=== PATIENT | female | born 1945 | race Two or more races ===

== ENCOUNTER 2022-06-22 11:51 | Outpatient (CLI) | payer OTHER | END 2022-06-22 12:00 | disposition home or self-care (01) | LOC: MRI 11:51 | DX: M23.222 Derangement of posterior horn of medial meniscus due to old tear or injury, left knee (principal); M23.221 Derangement of posterior horn of medial meniscus due to old tear or injury, right knee | CPT/HCPCS: 73721 ==

== ENCOUNTER 2022-08-05 15:12 | Outpatient (CLI) | payer OTHER | END 2022-08-05 15:17 | disposition home or self-care (01) | LOC: RAD 15:12 | PROVIDERS: ATTEND Orthopaedic Surgery Sports Medicine | DX: M17.0 Bilateral primary osteoarthritis of knee (principal) ==

== ENCOUNTER 2023-04-12 12:47 | Emergency (ER) | payer OTHER ==
[~2023-04-12] VITALS: Ht 144.8 cm; Wt 45.4 kg
[2023-04-12] MEDS ORDERED: AMLODIPINE-OLM1 EAC2 PO (13:22)
[2023-04-12] MEDS ORDERED: METROPOLOL (13:23)
[2023-04-12] MEDS ORDERED: GLIMEPIRIDE1 M1 PO (13:23)
[2023-04-12] MEDS ORDERED: KETOROLAC TROMETHAMINE 30 MG VIAL IM STA (13:51)
== END 2023-04-12 16:20 | disposition home or self-care (01) ==
LOC: ER 12:47
DX: S30.0XXA Contusion of lower back and pelvis, initial encounter (principal); W18.39XA Other fall on same level, initial encounter; Y93.89 Activity, other specified; Y92.018 Other place in single-family (private) house as the place of occurrence of the external cause; E11.9 Type 2 diabetes mellitus without complications; Z79.84 Long term (current) use of oral hypoglycemic drugs
CPT/HCPCS: 72220; 96372; 99283; J1885

== ENCOUNTER 2023-11-15 10:18 | Outpatient (CLI) | payer OTHER ==
[~2023-11-15 10:18] MED LIST: AMLODIPINE-OLM1 EAC2 PO; GLIMEPIRIDE1 M1 PO; METROPOLOL
== END 2023-11-15 10:25 | disposition home or self-care (01) ==
LOC: RAD 10:18
DX: Z01.810 Encounter for preprocedural cardiovascular examination (principal); I10 Essential (primary) hypertension; E78.9 Disorder of lipoprotein metabolism, unspecified; M89.9 Disorder of bone, unspecified; Z13.820 Encounter for screening for osteoporosis

== ENCOUNTER 2024-01-16 20:47 | Emergency (ER) | payer OTHER ==
[~2024-01-16] VITALS: Ht 144.8 cm; Wt 49.0 kg
[2024-01-16] MEDS ORDERED: SPIRONOLACTONE25 MG PO (21:24)
[2024-01-16] MEDS ORDERED: CHILDREN'S ASPI81 MG PO (21:24)
[2024-01-16] MEDS ORDERED: PROLIA60 MG/1 ML SUBCUTANEO (21:25)
== END 2024-01-17 04:16 | disposition home or self-care (01) ==
LOC: ER 20:49
DX: R53.81 Other malaise (principal); E11.649 Type 2 diabetes mellitus with hypoglycemia without coma

== ENCOUNTER → 2024-07-13 07:10 | Outpatient (CLI) | payer OTHER ==
[~2024-07-13 07:10] MED LIST changes: +CHILDREN'S ASPI81 MG PO; +PROLIA60 MG/1 ML SUBCUTANEO; +SPIRONOLACTONE25 MG PO
[2024-07-13 07:55] LABS: BASO % 0.5 % (0.1-1.2); EOS # 0.43 (0.04-0.54); EOS % 5.4 % (0.7-7.0); HEMATOCRIT 30.4 % (34.1-44.9); HEMOGLOBIN 10.6 g/dL (11.2-15.7); LYMPH # 1.64 (1.18-3.74); LYMPH % 20.7 % (19.3-53.1); MEAN CORPUSCULAR HEMOGLOBIN 32.9 pg (25.6-32.2); MONO # 0.56 (0.24-0.82); MONO % 7.1 % (4.7-12.5); NEUT # 5.22 (1.56-6.13); NEUT % 65.8 % (34.0-71.1); PLATELET COUNT 292 K/uL (163-369); RED BLOOD COUNT 3.22 M/uL (3.93-5.22); RED CELL DISTRIBUTION WIDTH 13.4 % (11.6-14.4)
[2024-07-13 08:06] LABS: PH,URINE 7.5 (5.0-8.0); URINE APPEARANCE Clear; URINE BILIRRUBIN Negative (NEGATIVE); URINE BLOOD Negative; URINE COLOR Yellow; URINE GLUCOSE Negative (NEGATIVE); URINE KETONE Negative (NEGATIVE); URINE LEUKOCYTE Negative; URINE NITRATE Negative; URINE PROTEIN Negative (NEGATIVE); URINE UROBILINOGEN 0.2 E.U./dl
[2024-07-13 08:09] LABS: URINE BACTERIA 102.6 uL (0.0-1933); URINE EPITHELIAL CELLS 1.5 uL (0.0-38.8); URINE WBC 5.3 uL (0.0-23.2)
[2024-07-13 08:47] LABS: URINE RBC 0.7 uL (0.0-20.8)
[2024-07-13 08:52] LABS: ALBUMIN 4.3 gm/dL (3.4-5.0); BILIRUBIN TOTAL 0.5 mg/dL (0.3-1.2); CALCIUM 9.8 mg/dL (8.5-10.1); CREATININE SERUM 1.16 mg/dL (0.55-1.02); GFR 45.18; GLOBULINA 3.2 G/DL (2.4-3.5); PHOSPHOROUS 3.4 mg/dL (2.5-4.9); POTASSIUM 5.1 mEq/L (3.5-5.1); TOTAL PROTEIN 7.5 gm/dL (6.4-8.2); URIC ACID 5.3 mg/dL (2.5-7.5)
[2024-07-14 13:08] LABS: kappa lambda r 1.28 (0.26-1.65); kappa light 21.5 mg/L (3.3-19.4); lambda light 16.8 mg/L (5.7-26.3)
[2024-07-16 15:08] LABS: BETA-2-MICROGLOBULINA 2.4 mg/L (0.6-2.4)
[2024-07-17 13:08] LABS: IMM A 163 mg/dL (64-422); IMM G 830 mg/dL (586-1602); IMM M 46 mg/dL (26-217); a:g ratio 1.4 (0.7-1.7); alpha 1 g 0.2 g/dL (0.0-0.4); alpha 2 0.9 g/dL (0.4-1.0); beta g 1.1 g/dL (0.7-1.3); gamma g 0.7 g/dL (0.4-1.8); globulin t 2.9 g/dL (2.2-3.9); m spike Not Observed g/dL (Not Observed); prot total 7.1 g/dL (6.0-8.5)
[2024-07-17 19:11] LABS: alp 0 % (.); alph 2 0 % (.); beta 0 % (.); gam 0 % (.); m spi 0 % (Not Observed); prot 8.6 mg/dL (Not Estab.)
== END | disposition home or self-care (01) ==
LOC: LAB 07:10
PROVIDERS: ATTEND Internal Medicine Hematology & Oncology
DX: N18.30 Chronic kidney disease, stage 3 unspecified (principal); E11.21 Type 2 diabetes mellitus with diabetic nephropathy; D63.1 Anemia in chronic kidney disease; N30.00 Acute cystitis without hematuria; E78.5 Hyperlipidemia, unspecified; E03.9 Hypothyroidism, unspecified; D51.3 Other dietary vitamin B12 deficiency anemia; K29.40 Chronic atrophic gastritis without bleeding; N18.4 Chronic kidney disease, stage 4 (severe); B96.81 Helicobacter pylori [H. pylori] as the cause of diseases classified elsewhere; D50.8 Other iron deficiency anemias; R79.9 Abnormal finding of blood chemistry, unspecified; I10 Essential (primary) hypertension; R74.02 Elevation of levels of lactic acid dehydrogenase [LDH]; K76.89 Other specified diseases of liver; D51.1 Vitamin B12 deficiency anemia due to selective vitamin B12 malabsorption with proteinuria; D51.0 Vitamin B12 deficiency anemia due to intrinsic factor deficiency; D47.2 Monoclonal gammopathy; C90.00 Multiple myeloma not having achieved remission

== ENCOUNTER 2024-10-13 07:54 | Outpatient (CLI) | payer OTHER ==
[2024-10-13 09:57] LABS: BASO % 0.2 % (0.1-1.2); EOS # 0.00 (0.04-0.54); EOS % 0.0 % (0.7-7.0); LYMPH # 3.51 (1.18-3.74); LYMPH % 28.2 % (19.3-53.1); MEAN PLATELET VOLUME 9.60 fl (9.4-12.4); MONO # 0.89 (0.24-0.82); MONO % 7.1 % (4.7-12.5); NEUT # 7.98 (1.56-6.13); NEUT % 64.1 % (34.0-71.1); RED CELL DISTRIBUTION WIDTH 12.4 % (11.6-14.4)
[2024-10-13 10:31] LABS: ALT/SGPT 25.0 U/L (12-78); AST/SGOT 19.0 U/L (15-37); BILIRUBIN TOTAL 0.43 mg/dL (0.3-1.2); BUN CREA RATIO 29.0 (7.0-25.0); CREATININE SERUM 0.96 mg/dL (0.55-1.02); FE 76.0 ug/dl (50-170); GFR 56.06; GLOBULINA 3.2 G/DL (2.4-3.5); LDH 243.0 U/L (84-246); OSMOLALITY SERUM 280.0 MOSM/KG (275-295)
[2024-10-13 11:04] LABS: GLUCOSE FASTING 39.0 mg/dL (65-100)
[2024-10-15 12:04] LABS: FOLIC ACID > 20.00 ng/ml (4.78-20); VITAMIN D3 25 HYDROXY 117.80 ng/ml (30-120)
== END 2024-10-13 08:02 | disposition home or self-care (01) ==
LOC: LAB 07:54
PROVIDERS: ATTEND Internal Medicine Hematology & Oncology
DX: D51.3 Other dietary vitamin B12 deficiency anemia (principal); K29.40 Chronic atrophic gastritis without bleeding; D63.1 Anemia in chronic kidney disease; N18.4 Chronic kidney disease, stage 4 (severe); B96.81 Helicobacter pylori [H. pylori] as the cause of diseases classified elsewhere; I10 Essential (primary) hypertension; E08.21 Diabetes mellitus due to underlying condition with diabetic nephropathy; D50.8 Other iron deficiency anemias; R74.02 Elevation of levels of lactic acid dehydrogenase [LDH]; K76.89 Other specified diseases of liver; D63.8 Anemia in other chronic diseases classified elsewhere; E55.9 Vitamin D deficiency, unspecified